=== PATIENT | female | born 1970 | race Caucasian/White ===

== ENCOUNTER 2018-03-09 10:50 | Emergency (ER) | payer OTHER ==
[~2018-03-09] VITALS: Ht 167.6 cm; Wt 77.1 kg
[~2018-03-09 10:50] MED LIST: CLONAZEPAM0.25 MG; ZOLOFT20 MG/1 ML
[2018-03-09] MEDS ORDERED: PROPRANOLOL HCL10 MG (11:10)
[2018-03-09] MEDS ORDERED: RESTORIL30 MG (11:11)
[2018-03-09] MEDS ORDERED: inderal PO (13:24)
[2018-03-09] MEDS ORDERED: CLONAZEPAM0.5 MG PO (13:24)
[2018-03-09] MEDS ORDERED: RESTORIL30 MG PO (13:24)
[2018-03-09] MEDS ORDERED: ZOLOFT100 MG PO (13:24)
== END 2018-03-09 13:37 | disposition home or self-care (01) ==
LOC: ER 10:50
DX: R51 Headache (principal); Z76.0 Encounter for issue of repeat prescription

== ENCOUNTER 2024-01-02 17:53 | Emergency (ER) | payer OTHER ==
[~2024-01-02] VITALS: Ht 170.2 cm; Wt 68.0 kg
[~2024-01-02 17:53] MED LIST changes: +CLONAZEPAM0.5 MG PO; +PROPRANOLOL HCL10 MG; +RESTORIL30 MG; +RESTORIL30 MG PO; +ZOLOFT100 MG PO; +inderal PO
[2024-01-02 18:01] VITALS: BP 131/84; O2SAT 100
[2024-01-02] MEDS ORDERED: KETOROLAC TROMETHAMINE 60 MG VIAL IM STA (20:09)
[2024-01-02] MEDS ORDERED: ACETAMINOPHEN 500 MG GEL..CAP PO STA (20:09)
[2024-01-02 20:30] LABS: HEMATOCRIT 39.9 % (36.0-45.00); HEMOGLOBIN 13.3 g/dL (12.0-15.00); MEAN CELL VOLUME 85.8 fL (80.00-100.00); MEAN CORPUSCULAR HEMOGLOBIN 28.7 pg (27.00-32.0); MEAN CORPUSCULAR HGB CONC 33.4 g/dl (32.0-36.0); PLATELET COUNT 275 K/uL (150-450); RED BLOOD COUNT 4.65 M/uL (4.00-6.00); RED CELL DISTRIBUTION WIDTH 13.1 % (11.5-14.5)
== END 2024-01-02 22:02 | disposition home or self-care (01) ==
LOC: ER 17:55
DX: J06.9 Acute upper respiratory infection, unspecified (principal); E03.8 Other specified hypothyroidism; R50.9 Fever, unspecified; Z20.822 Contact with and (suspected) exposure to COVID-19